=== PATIENT | male | born 1970 | race Caucasian/White ===

== ENCOUNTER 2018-10-07 07:45 | Outpatient (CLI) | payer BC ==
--- NOTE | 2018-10-07 10:42 | ULT ---
ABDOMINAL ULTRASOUND: Date: 10-07-18 Provided Clinical History: Abnormal LFTs. FINDINGS: Evaluation is limited by bowel gas. Visualized abdominal aorta and IVC appear normal. The pancreas is obscured. The liver demonstrates a heterogeneous appearance demonstrating increased echogenicity compatible wit h fatty infiltration. There is mild hepatic enlargement with the liver measuring about 19 cm in crani ocaudal dimension at the right hepatic lobe. No evidence for mass or intrahepatic biliary ductal dila tation. The common duct is not dilated. The gallbladder demonstrates no evidence for stones, wall thi ckening or pericholecystic fluid. The kidneys demonstrate no evidence for hydronephrosis or solid mass. Simple appearing left renal cys t is seen. Spleen is not enlarged and demonstrates no focal abnormality. IMPRESSION: Hepatic enlargement and fatty infiltration. POS: TPC
== END 2018-10-07 07:46 | disposition home or self-care (01) ==
LOC: ULT 07:45
DX: K58.0 Irritable bowel syndrome with diarrhea (principal); R94.5 Abnormal results of liver function studies; R10.13 Epigastric pain; R19.4 Change in bowel habit; K76.0 Fatty (change of) liver, not elsewhere classified
CPT/HCPCS: 76700

== ENCOUNTER 2018-12-06 13:00 | Outpatient (CLI) | payer BC ==
--- NOTE | 2018-12-06 16:08 | NM ---
Radionucleotide hepatobiliary scan and gallbladder ejection fraction HISTORY: Postprandial right upper quadrant pain. FINDINGS: Early images show physiologic uptake of radiotracer throughout the hepatic parenchyma. Gall bladder first imaged at 11 minutes. Uptake within the small bowel at 9 minutes. After administration of fatty meal, there is partial excretion of the radiotracer from the gallbladder to t he small bowel. Ejection fraction calculated at 32%. IMPRESSION: No evidence of biliary obstruction. Abnormal gallbladder ejection fraction. Evidence of chronic gallbladder dyskinesis.
== END 2018-12-06 13:01 | disposition home or self-care (01) ==
LOC: NM 13:00
PROVIDERS: ATTEND Family Medicine
DX: R10.13 Epigastric pain (principal); K82.8 Other specified diseases of gallbladder
CPT/HCPCS: 78227; A9537

== ENCOUNTER 2019-08-10 06:31 | Outpatient (CLI) | payer BC, OTHER ==
[2019-08-10 14:22] LABS: #Eosinphils 0.2 thou/uL (0.0-0.7); #Lymphocytes 1.4 thou/uL (1.20-3.40); #Monocytes 0.5 thou/uL (0.11-0.59); %Basophils 0.5 % (0.0-1.0); %Eosinophils 3.4 % (0.0-10.0); %Lymphocytes 27.7 % (21.0-51.0); %Monocytes 9.3 % (0.0-10.0); %Neutrophils 59.1 % (42.0-75.0); Hemoglobin 14.4 g/dL (14.0-18.0); Mean Corpuscular HGB CONC 34.6 g/dL (32.0-36.0); Mean Corpuscular Hemoglobin 32.6 pg (27.0-31.0); Mean Corpuscular Volume 94.2 fL (78.0-98.0); Mean Platelet Volume 8.5 fL (7.4-10.4); Platelet Count 172 thou/uL (130-400); RBC Distribution Width 11.8 % (11.5-14.5); Red Blood Cell (RBC) Count 4.43 mill/uL (4.70-6.10)
[2019-08-10 14:42] LABS: ALT (SGPT) 59 U/L (8-55); AST (SGOT) 35 U/L (5-34); Albumin 4.3 g/dL (3.5-5.0); Alkaline Phosphatase 68 U/L (40-110); Bilirubin, Direct 0.3 mg/dL (0.1-0.3); Bilirubin, Total 0.6 mg/dL (0.2-1.2); Protein, Total 6.8 g/dL (6.0-8.3)
[2019-08-11 14:25] LABS: SARS-CoV-2 MS2 Positive; SARS-CoV-2 N Gene Negative; SARS-CoV-2 S Gene Negative; SARS-CoV-2 orf1ab Negative
== END 2019-08-10 06:32 | disposition home or self-care (01) ==
LOC: LABBT 06:31
PROVIDERS: ATTEND Surgery
DX: Z01.818 Encounter for other preprocedural examination (principal); Z11.59 Encounter for screening for other viral diseases; K80.50 Calculus of bile duct without cholangitis or cholecystitis without obstruction
CPT/HCPCS: 80076; 85025; 87635; U0003

== ENCOUNTER 2019-08-14 07:00 | Day surgery (SDC) | payer BC ==
[2019-08-09 09:32] VITALS: BMI 34.2
[2019-08-14] MEDS ORDERED: HYDROmorphone 0.5 MG/0.5 ML SYRINGE ONE ×2 (09:40→11:17)
[2019-08-14] MEDS ORDERED: Fentanyl 100 MCG/2 ML VIAL ONE ×3 (09:40→11:17)
[2019-08-14] MEDS ORDERED: Midazolam HCl 2 mg/2 ml Vial ONE (09:40)
[2019-08-14] MEDS ORDERED: Lidocaine 2% Jelly 5 ML TUBE ONE (09:40)
[2019-08-14] MEDS ORDERED: Lidocaine 1% w/Epinephrine 1:100K 20 ML VIAL ONE (09:49)
[2019-08-14] MEDS ORDERED: Bupivacaine 0.25% HCL 30 ML VIAL ONE (09:49)
[2019-08-14] MEDS ORDERED: Ondansetron PF 4 MG/2 ML Vial ONE (11:49)
[2019-08-14] MEDS ORDERED: Lidocaine 1% PF 5 ML VIAL ONE (11:49)
[2019-08-14] MEDS ORDERED: Glycopyrrolate 0.2 MG/ML 5 ML SYRINGE ONE (11:49)
[2019-08-14] MEDS ORDERED: PROPOFOL 200 MG/20 ML VIAL ONE (11:49)
[2019-08-14] MEDS ORDERED: Rocuronium Bromide 10 MG/ML (10ML VIAL) ONE (11:49)
[2019-08-14] MEDS ORDERED: Dexamethasone 20 MG/5 ML VIAL ONE (11:49)
[2019-08-14] MEDS ORDERED: PHENYLEPHRINE-NS 100 MCG/ML 10 ML SYRINGE ONE (11:49)
[2019-08-14] MEDS ORDERED: diphenhydrAMINE 50 MG/ML VIAL ONE ×2 (12:18→13:01)
[2019-08-14] MEDS ORDERED: diphenhydrAMINE 25 MG CAP ONE (13:01)
--- NOTE | 2019-08-14 14:40 | OP ---
DATE OF PROCEDURE: 08/14/2019 PREOPERATIVE DIAGNOSIS: Chronic cholecystitis. PROCEDURE PERFORMED: Laparoscopic cholecystectomy. INDICATIONS: A 49-year-old male, who had been having episodic right upper quadrant pain, radiating to back, associated with nausea, worse after eating, especially fatty foods. Ultrasound negative. Saw GI. They recommended cholecystectomy. FINDINGS: Very small caliber cystic duct. DESCRIPTION OF PROCEDURE: After informed consent was obtained, the patient was taken to the operating room, given general endotracheal anesthesia, placed in the supine position. Abdomen was prepped and draped in usual fashion. Local anesthesia was infiltrated subcutaneously and deep. A supraumbilical incision was performed, subcu divided sharply. The fascia was grasped and 2 stay sutures of 0 Vicryl placed on either side of midline. Midline incised. Digital palpation revealed no local adhesions. A blunt 12-mm trocar inserted. Pneumoperitoneum was created to a pressure of 15 mmHg. A 0-degree laparoscope inserted under direct vision, three 5-mm ports were placed subcostally. The gallbladder grasped and advanced superiorly. The peritoneum lysed distally to expose the cystic duct, cystic artery in critical view. Cystic duct was very tiny. The duct and artery were triply ligated with hemoclips and divided. The gallbladder was removed from its fossa utilizing electrocautery, removed from the abdomen through the umbilical port. Hemostasis was assured. Trocars and retractors removed. The fascia was closed with interrupted 0 Vicryl suture. Skin closed with interrupted 4-0 Rapide. Dermabond applied. The patient tolerated the procedure well, transferred to Recovery in good condition. Sponge and needle count verified correct x2. Job ID: [id number]
--- NOTE | 2019-08-17 07:47 | EKG ---
Test Reason : PREOP Blood Pressure : / mmHG Vent. Rate : 055 BPM Atrial Rate : 055 BPM P-R Int : 170 ms QRS Dur : 100 ms QT Int : 424 ms P-R-T Axes : 026 -01 010 degrees QTc Int : 405 ms Sinus bradycardia Otherwise normal ECG No previous ECGs available Confirmed by DR. Leonardo MCCORMACK ([id number]) on 08/17/2019 7:47:20 AM Referred By: DIANA Confirmed By:DR. Leonardo MCCORMACK
== END 2019-08-14 13:55 | disposition home or self-care (01) ==
LOC: SDC 07:00
PROVIDERS: ATTEND Surgery
PROC: 0FT44ZZ Resection of Gallbladder, Percutaneous Endoscopic Approach (ICD-10-PCS; principal; 2019-08-14)
DX: K81.1 Chronic cholecystitis (principal); I10 Essential (primary) hypertension; E78.00 Pure hypercholesterolemia, unspecified; F41.9 Anxiety disorder, unspecified; F32.9 Major depressive disorder, single episode, unspecified; Z79.899 Other long term (current) drug therapy
CPT/HCPCS: 88304; 93005; 93010; J0694; J1100; J1170; J1200; J2001; J2250; J2405; J2704; J3010; Q0163; S0020

== ENCOUNTER 2020-10-11 08:25 | Outpatient (CLI) | payer BC ==
[2020-10-11] MEDS ORDERED: Iopamidol-370 76% 500 ML 1 ML ONE (10:14)
== END 2020-10-11 08:26 | disposition home or self-care (01) ==
LOC: BICCT 08:25
PROVIDERS: ATTEND Physician Assistant Medical
DX: K52.9 Noninfective gastroenteritis and colitis, unspecified (principal); R10.13 Epigastric pain; K76.0 Fatty (change of) liver, not elsewhere classified
CPT/HCPCS: 74177; Q9967

== ENCOUNTER 2020-10-23 18:00 | Outpatient (CLI) | payer BC | END 2020-10-23 18:01 | disposition home or self-care (01) | LOC: SLEEPLAB 18:00 | PROVIDERS: ATTEND Family Medicine | DX: G47.33 Obstructive sleep apnea (adult) (pediatric) (principal); R53.83 Other fatigue; R06.83 Snoring; R09.89 Other specified symptoms and signs involving the circulatory and respiratory systems; F43.10 Post-traumatic stress disorder, unspecified; F41.9 Anxiety disorder, unspecified; F32.9 Major depressive disorder, single episode, unspecified; I10 Essential (primary) hypertension; G47.00 Insomnia, unspecified | CPT/HCPCS: 95806 ==

== ENCOUNTER 2021-10-30 15:19 | Outpatient (CLI) | payer BC | END 2021-10-30 15:20 | disposition home or self-care (01) | LOC: LABBT 15:19 | PROVIDERS: ATTEND Surgery | DX: Z20.822 Contact with and (suspected) exposure to COVID-19 (principal) | CPT/HCPCS: 87811 ==

== ENCOUNTER 2021-11-20 12:53 | Outpatient (CLI) | payer BC | END 2021-11-20 12:54 | disposition home or self-care (01) | LOC: LABBT 12:53 | PROVIDERS: ATTEND Surgery | DX: U07.1 COVID-19 (principal) | CPT/HCPCS: 87811 ==

== ENCOUNTER 2021-12-08 09:04 | Outpatient (CLI) | payer BC ==
[2021-12-08] MEDS ORDERED: Iopamidol-370 76% 500 ML 1 ML ONE (14:30)
== END 2021-12-08 09:05 | disposition home or self-care (01) ==
LOC: BICCT 09:04
PROVIDERS: ATTEND Family Medicine
DX: R10.31 Right lower quadrant pain (principal); K76.0 Fatty (change of) liver, not elsewhere classified; N28.1 Cyst of kidney, acquired
CPT/HCPCS: 74177; 82565; Q9967

== ENCOUNTER 2021-12-19 09:48 | Outpatient (CLI) | payer BC ==
[2021-12-18 14:18] VITALS: BMI 39.5
[2021-12-19] MEDS ORDERED: fentaNYL Citrate/PF 100 MCG/2 ML SYRINGE ONE (12:15)
[2021-12-19] MEDS ORDERED: Midazolam HCl 2 mg/2 ml Vial ONE (12:15)
[2021-12-19] MEDS ORDERED: PROPOFOL 200 MG/20 ML VIAL ONE (12:30)
[2021-12-19] MEDS ORDERED: FENTANYL 50 MCG/ML VIAL 50 MCG/ML VIAL ONE (13:49)
== END 2021-12-19 14:55 | disposition home or self-care (01) ==
LOC: MRI 09:48 → SDC 14:55
PROVIDERS: ATTEND Surgery
DX: M50.121 Cervical disc disorder at C4-C5 level with radiculopathy (principal); M51.16 Intervertebral disc disorders with radiculopathy, lumbar region; M47.26 Other spondylosis with radiculopathy, lumbar region
CPT/HCPCS: 72141; 72148; J2250; J3010

== ENCOUNTER 2021-12-29 11:00 | Outpatient (CLI) | payer BC | END 2021-12-29 11:01 | disposition home or self-care (01) | LOC: RAD 11:00 | PROVIDERS: ATTEND Surgery | DX: M47.22 Other spondylosis with radiculopathy, cervical region (principal); M47.26 Other spondylosis with radiculopathy, lumbar region | CPT/HCPCS: 72040; 72120 ==

== ENCOUNTER 2022-02-12 09:30 | Outpatient (CLI) | payer BC | END 2022-02-12 09:31 | disposition home or self-care (01) | LOC: CT 09:30 | PROVIDERS: ATTEND Surgery | DX: M50.10 Cervical disc disorder with radiculopathy, unspecified cervical region (principal); M47.22 Other spondylosis with radiculopathy, cervical region; M48.02 Spinal stenosis, cervical region | CPT/HCPCS: 70498 ==

== ENCOUNTER 2022-03-31 12:50 | Emergency (ER) | payer BC ==
[2022-03-31] MEDS ORDERED: Bacitracin 1 PK ONE (16:39)
== END 2022-03-31 17:11 | disposition home or self-care (01) ==
LOC: ERS 12:50
DX: L60.0 Ingrowing nail (principal); L03.031 Cellulitis of right toe; I10 Essential (primary) hypertension; E78.00 Pure hypercholesterolemia, unspecified; F17.220 Nicotine dependence, chewing tobacco, uncomplicated; Z79.899 Other long term (current) drug therapy
CPT/HCPCS: 11765

== ENCOUNTER 2025-02-06 12:31 | Emergency (ER) | payer BC, OTHER ==
[2025-02-06] MEDS ORDERED: Ketorolac Tromethamine 30 MG (1 mL) VIAL ONE (13:19)
[2025-02-06] MEDS ORDERED: Cyclobenzaprine 10 MG TAB ONE (14:06)
== END 2025-02-06 15:13 | disposition home or self-care (01) ==
LOC: ERS 12:31
DX: S39.012A Strain of muscle, fascia and tendon of lower back, initial encounter (principal); T14.8XXA Other injury of unspecified body region, initial encounter; M79.671 Pain in right foot; I10 Essential (primary) hypertension; W18.30XA Fall on same level, unspecified, initial encounter
CPT/HCPCS: 72125; 72131; 96372; J1885